=== PATIENT | female | born 1955 | race Caucasian/White ===

== ENCOUNTER 2017-12-05 05:46 | Inpatient (IN) | payer MEDICAID ==
[~2017-12-05] VITALS: Ht 152.4 cm; Wt 52.4 kg
[2017-12-05 06:59] LABS: BASOPHILS # (AUTO) 0.03 x10^3/uL (0-0.1); BASOPHILS % (AUTO) 0 % (0-1); EOSINOPHILS # (AUTO) 0.92 x10^3/uL (0-0.4); EOSINOPHILS % (AUTO) 6 % (1-7); LYMPHOCYTES % (AUTO) 8 % (22-44); MD NO; MEAN CORPUSCULAR HEMOGLOBIN 31.7 pg (27.0-34.8); MEAN CORPUSCULAR HGB CONC 33.3 g/dL (32.4-35.8); MEAN CORPUSCULAR VOLUME 95.1 fL (80-100); MEAN PLATELET VOLUME 7.1 fL (7.4-10.4); MONOCYTES # (AUTO) 0.34 x10^3/uL (0.2-0.8); MONOCYTES % (AUTO) 2 % (2-9); NEUTROPHILS # (AUTO) 12.34 x10^3/uL (1.8-6.8); NEUTROPHILS % (AUTO) 83 % (42-75); PLATELET COUNT 448 x10^3/uL (130-400); RED BLOOD COUNT 3.49 x10^6/uL (3.82-5.3); RED CELL DISTRIBUTION WIDTH 15.3 % (9.6-15.2)
[2017-12-05] MEDS ORDERED: ONDANSETRON 2MG/ML, 2ML IVPush ONE (07:00)
[2017-12-05] MEDS ORDERED: AMPICILLIN/SULBACTAM 3 GM in SODIUM CHLORIDE 0.9% 100 ML IV ONE (07:00)
[2017-12-05] MEDS ORDERED: SODIUM CHLORIDE FLUSH 10ML SYR IVF ONE ×2 (07:00→08:30)
[2017-12-05 07:01] LABS: ALANINE AMINOTRANSFERASE 11 U/L (12-78); ALBUMIN 2.3 g/dL (3.4-5.0); ANION GAP 10 mmol/L (5-15); CALCIUM 8.1 mg/dL (8.5-10.1); CHLORIDE 100 mmol/L (98-107)
[2017-12-05 07:03] LABS: ALKALINE PHOSPHATASE 96 U/L (45-117); BILIRUBIN,TOTAL 0.4 mg/dL (0.2-1.0); TOTAL PROTEIN 7.4 g/dL (6.4-8.2)
[2017-12-05 07:25] LABS: CREATINE KINASE, TOTAL 220 U/L (26-192); TROPONIN I < 0.015 ng/mL (0.000-0.045)
[2017-12-05] MEDS ORDERED: PLEASE ENTER ALLERGIES MC SCH (07:30)
[2017-12-05] MEDS ORDERED: SODIUM CHLORIDE 0.9% 1,000ML IVBOLUS ONE ×2 (07:30→12:15)
[2017-12-05] MEDS ORDERED: PIPERONYL BUTOXIDE/PYRETHRINS SHAMPOO TP SCH (07:30)
[2017-12-05] MEDS ORDERED: SODIUM CHLORIDE 0.9% 1,000 ML IV ONE (07:44)
[2017-12-05] MEDS ORDERED: ONDANSETRON 2MG/ML, 2ML ONE (07:45)
[2017-12-05] MEDS ORDERED: SODIUM CHLORIDE FLUSH 10ML SYR IVF PRN (08:00)
[2017-12-05 09:42] LABS: MICROSCOPIC NOT IND
[2017-12-05] MEDS ORDERED: ENALAPRILAT 1.25 MG/ML, 2ML IVPush PRN (14:30)
[2017-12-05] MEDS ORDERED: hydrALAzine 20 MG/ML, 1ML IVPush PRN (14:30)
[2017-12-05] MEDS ORDERED: LORazepam 1MG TABLET PO PRN (14:30)
[2017-12-05] MEDS ORDERED: POLYETHYLENE GLYCOL 17 GM PACKET PO PRN (14:30)
[2017-12-05] MEDS ORDERED: BISACODYL 10 MG SUPP PR PRN (14:30)
[2017-12-05] MEDS ORDERED: ONDANSETRON 2MG/ML, 2ML IVPush PRN (14:30)
[2017-12-05] MEDS ORDERED: ACETAMINOPHEN 325 MG TABLET PO PRN (14:30)
[2017-12-05] MEDS: ENOXAPARIN 40 MG/0.4 ML SQ SCH (14:30)
[2017-12-05] MEDS: NICOTINE 14MG/24 HR PATCH.TD24 TD SCH (14:30)
[2017-12-05] MEDS ORDERED: VANCOMYCIN PER PHARMACY MC PRN (14:30)
[2017-12-05] MEDS ORDERED: PHARMACOKINETIC CONSULTATION MC ONE (15:00)
[2017-12-05] MEDS ORDERED: PHARMACOKINETIC MONITORING MC PRN (15:00)
[2017-12-05 15:20] LABS: HCT (SEDRATE) 30.2 % (34.6-47.8)
[2017-12-05] MEDS: OXYcodone IR 5MG TABLET PO PRN ×2 (15:34→20:47)
[2017-12-05] MEDS: DIPHENHYDRAMINE 25 MG CAPSULE PO SCH ×2 (15:34→20:33)
[2017-12-05] MEDS: FAMOTIDINE 20 MG TABLET PO SCH ×2 (15:34→20:33)
[2017-12-05] MEDS: SODIUM CHLORIDE 0.9% 1,000 ML IV SCH (15:34)
[2017-12-05] MEDS: AMPICILLIN/SULBACTAM 3 GM in SODIUM CHLORIDE 0.9% 100 ML IV SCH ×2 (15:35→20:33)
[2017-12-05 15:40] LABS: FREE T4 (FREE THYROXINE) 1.34 ng/dL (0.76-1.46); THYROID STIMULATING HORMONE 1.33 mIU/L (0.358-3.740)
[2017-12-05] MEDS: VANCOMYCIN PMX 1GM/200ML 200 ML IV SCH (17:37)
[2017-12-05] MEDS: morphine SULFATE 10 MG/ML, 1ML IVPush PRN (18:06)
[2017-12-05 18:46] LABS: HEMOGLOBIN A1C 5.6 % (4.2-6.3)
[2017-12-05 19:48] VITALS: BP 139/82
[2017-12-06] VITALS (8 sets, daily range): BP systolic 77–101; BP diastolic 42–65
[2017-12-06] MEDS: AMPICILLIN/SULBACTAM 3 GM in SODIUM CHLORIDE 0.9% 100 ML IV SCH ×2 (01:57→09:20)
[2017-12-06] MEDS: morphine SULFATE 10 MG/ML, 1ML IVPush PRN ×2 (01:57→23:06)
[2017-12-06] MEDS: SODIUM CHLORIDE 0.9% 1,000 ML IV SCH (01:57)
[2017-12-06 05:12] LABS: BASOPHILS # (AUTO) 0.03 x10^3/uL (0-0.1); BASOPHILS % (AUTO) 0 % (0-1); EOSINOPHILS # (AUTO) 0.99 x10^3/uL (0-0.4); EOSINOPHILS % (AUTO) 11 % (1-7); LYMPHOCYTES # (AUTO) 1.45 x10^3/uL (1-3.4); LYMPHOCYTES % (AUTO) 16 % (22-44); MD NO; MEAN CORPUSCULAR HGB CONC 33.7 g/dL (32.4-35.8); MEAN CORPUSCULAR VOLUME 95.1 fL (80-100); MEAN PLATELET VOLUME 7.1 fL (7.4-10.4); MONOCYTES # (AUTO) 0.52 x10^3/uL (0.2-0.8); MONOCYTES % (AUTO) 6 % (2-9); NEUTROPHILS # (AUTO) 6.32 x10^3/uL (1.8-6.8); NEUTROPHILS % (AUTO) 68 % (42-75); PLATELET COUNT 365 x10^3/uL (130-400); RED CELL DISTRIBUTION WIDTH 15.6 % (9.6-15.2)
[2017-12-06 05:14] LABS: ALBUMIN 1.8 g/dL (3.4-5.0); ANION GAP 6 mmol/L (5-15); CALCIUM 7.5 mg/dL (8.5-10.1); CHLORIDE 107 mmol/L (98-107)
[2017-12-06 05:17] LABS: ALANINE AMINOTRANSFERASE 10 U/L (12-78); ALKALINE PHOSPHATASE 69 U/L (45-117); BILIRUBIN,TOTAL 0.2 mg/dL (0.2-1.0); CHOLESTEROL, TOTAL 121 mg/dL (140-239); CREATININE 0.61 mg/dL (0.55-1.02); HDL CHOLESTEROL (DIRECT) 22 mg/dL (40-60); TOTAL PROTEIN 5.8 g/dL (6.4-8.2); TRIGLYCERIDES 91 mg/dL (50-200); VLDL CHOLESTEROL 18 mg/dL (0-25)
[2017-12-06 05:18] LABS: CHOL/HDL RATIO 5.5; HDL CHOL % 18 % (28-40); LDL CHOLESTEROL,CALCULATED 81 mg/dL (54-169); LDL/HDL RATIO 3.7 (0.5-3.0)
[2017-12-06] MEDS: FAMOTIDINE 20 MG TABLET PO SCH ×2 (09:20→23:06)
[2017-12-06] MEDS: OXYcodone IR 5MG TABLET PO PRN ×2 (09:20→13:45)
[2017-12-06] MEDS: SENNA/DOCUSATE TABLET PO SCH (09:21)
[2017-12-06] MEDS: DIPHENHYDRAMINE 25 MG CAPSULE PO SCH ×2 (09:40→23:06)
[2017-12-06] MEDS: PIPERACILLIN/TAZO/PMX 3.375GM 50 ML IV SCH ×3 (11:51→23:06)
[2017-12-06] MEDS: VANCOMYCIN PMX 1GM/200ML 200 ML IV SCH (13:06)
[2017-12-06] MEDS: NICOTINE 14MG/24 HR PATCH.TD24 TD SCH (14:30)
[2017-12-06] MEDS: ENOXAPARIN 40 MG/0.4 ML SQ SCH (14:30)
[2017-12-06] MEDS ORDERED: SODIUM CHLORIDE 0.9% 1,000ML IVBOLUS ONE (16:00)
[2017-12-06 16:58] LABS: BASOPHILS # (AUTO) 0.04 x10^3/uL (0-0.1); BASOPHILS % (AUTO) 1 % (0-1); EOSINOPHILS # (AUTO) 0.85 x10^3/uL (0-0.4); EOSINOPHILS % (AUTO) 10 % (1-7); LYMPHOCYTES # (AUTO) 1.44 x10^3/uL (1-3.4); LYMPHOCYTES % (AUTO) 18 % (22-44); MD NO; MEAN CORPUSCULAR HEMOGLOBIN 31.7 pg (27.0-34.8); MEAN CORPUSCULAR HGB CONC 33.2 g/dL (32.4-35.8); MEAN CORPUSCULAR VOLUME 95.4 fL (80-100); MEAN PLATELET VOLUME 6.7 fL (7.4-10.4); MONOCYTES # (AUTO) 0.34 x10^3/uL (0.2-0.8); MONOCYTES % (AUTO) 4 % (2-9); NEUTROPHILS # (AUTO) 5.57 x10^3/uL (1.8-6.8); NEUTROPHILS % (AUTO) 68 % (42-75); PLATELET COUNT 381 x10^3/uL (130-400); RED BLOOD COUNT 2.57 x10^6/uL (3.82-5.3); RED CELL DISTRIBUTION WIDTH 15.4 % (9.6-15.2)
[2017-12-07 01:37] VITALS: BP 95/61
[2017-12-07] MEDS: PIPERACILLIN/TAZO/PMX 3.375GM 50 ML IV SCH ×4 (04:51→23:03)
[2017-12-07] MEDS: VANCOMYCIN PMX 1GM/200ML 200 ML IV SCH ×2 (05:31→12:11)
[2017-12-07 08:30] VITALS: BP 122/74
[2017-12-07] MEDS: SENNA/DOCUSATE TABLET PO SCH (09:48)
[2017-12-07] MEDS: DIPHENHYDRAMINE 25 MG CAPSULE PO SCH ×2 (09:49→20:44)
[2017-12-07] MEDS: FAMOTIDINE 20 MG TABLET PO SCH ×2 (09:49→20:44)
[2017-12-07] MEDS: OXYcodone IR 5MG TABLET PO PRN (09:49)
[2017-12-07] MEDS: ENOXAPARIN 40 MG/0.4 ML SQ SCH (12:31)
[2017-12-07] MEDS: NICOTINE 14MG/24 HR PATCH.TD24 TD SCH (12:31)
[2017-12-07 14:30] VITALS: BP 108/60
[2017-12-08] MEDS: PIPERACILLIN/TAZO/PMX 3.375GM 50 ML IV SCH ×4 (05:24→23:10)
[2017-12-08] MEDS: VANCOMYCIN PMX 1GM/200ML 200 ML IV SCH (06:04)
[2017-12-08] MEDS: FAMOTIDINE 20 MG TABLET PO SCH ×2 (09:00→23:10)
[2017-12-08] MEDS: SENNA/DOCUSATE TABLET PO SCH (09:00)
[2017-12-08] MEDS: DIPHENHYDRAMINE 25 MG CAPSULE PO SCH ×2 (11:07→23:10)
[2017-12-08] MEDS: ENOXAPARIN 40 MG/0.4 ML SQ SCH (13:59)
[2017-12-08] MEDS: NICOTINE 14MG/24 HR PATCH.TD24 TD SCH (13:59)
[2017-12-09] MEDS: VANCOMYCIN PMX 1GM/200ML 200 ML IV SCH (00:23)
[2017-12-09] MEDS: PIPERACILLIN/TAZO/PMX 3.375GM 50 ML IV SCH ×2 (05:05→11:16)
[2017-12-09] MEDS: FAMOTIDINE 20 MG TABLET PO SCH (09:00)
[2017-12-09] MEDS: SENNA/DOCUSATE TABLET PO SCH (09:00)
[2017-12-09] MEDS: DIPHENHYDRAMINE 25 MG CAPSULE PO SCH (10:11)
[2017-12-09] MEDS: ENOXAPARIN 40 MG/0.4 ML SQ SCH (11:17)
[2017-12-09] MEDS: NICOTINE 14MG/24 HR PATCH.TD24 TD SCH (11:17)
[2017-12-09] MEDS ORDERED: FAMO20TA7 PO (13:48)
[2017-12-09] MEDS ORDERED: CEPH-368 PO (13:48)
[2017-12-09] MEDS ORDERED: HYDR25TA11 PO (13:48)
[2017-12-09] MEDS ORDERED: PRED5TAB PO (13:48)
[2017-12-09] MEDS ORDERED: ACET325T14 PO (13:48)
[2017-12-09] MEDS ORDERED: DIPH25CA61 PO (13:48)
[2017-12-09] MEDS ORDERED: IBUP-1484 PO (13:49)
[2017-12-09] MEDS ORDERED: IBUPROFEN 200 MG TABLET PO PRN (14:00)
== END 2017-12-09 17:15 | disposition home or self-care (01) | DRG 871 ==
LOC: ED 07:22 → EDIP 07:44 → 3NW 12:53 → 4EST 12-08 01:49
PROVIDERS: ADMIT Internal Medicine; ATTEND Internal Medicine
DX: A41.9 Sepsis, unspecified organism (principal); E43 Unspecified severe protein-calorie malnutrition; L03.221 Cellulitis of neck; B85.0 Pediculosis due to Pediculus humanus capitis; D64.9 Anemia, unspecified; F17.210 Nicotine dependence, cigarettes, uncomplicated; L03.811 Cellulitis of head [any part, except face]; L03.313 Cellulitis of chest wall; L03.311 Cellulitis of abdominal wall; L03.317 Cellulitis of buttock; L03.113 Cellulitis of right upper limb; L03.114 Cellulitis of left upper limb; F32.9 Major depressive disorder, single episode, unspecified; F41.9 Anxiety disorder, unspecified; Z71.6 Tobacco abuse counseling; Z59.0 Homelessness; Z90.710 Acquired absence of both cervix and uterus; Z91.19 Patient's noncompliance with other medical treatment and regimen; L30.8 Other specified dermatitis; Z88.6 Allergy status to analgesic agent; Z68.22 Body mass index [BMI] 22.0-22.9, adult
CPT/HCPCS: 36415; 71045; 80053; 80061; 80202; 81003; 82533; 82550; 83036; 83605; 83735; 84145; 84439; 84443; 84484; 85025; 85651; 86140; 87040; 93005; 93306; 96365; 96375; J0295; J2405; J2543; J3370; J2270; J7030; J7512; Q0163